=== PATIENT | female | born 1960 | race African-American/Black ===

== ENCOUNTER 2017-07-10 09:27 | Inpatient (IN) | payer MEDICARE, OTHER, MEDICAID ==
[2017-07-10 12:17] LABS: INR 0.94; PROTIME 12.7 Sec (11.9-14.9)
[2017-07-10 12:18] LABS: PARTIAL THROMBOPLASTIN TIME 26.9 Sec (25.0-35.0)
[2017-07-10 12:23] LABS: ALANINE AMINOTRANSFERASE 24 IU/L (13-69); ALBUMIN/GLOBULIN RATIO 1.08; ALKALINE PHOSPHATASE 177 IU/L (42-121); ANION GAP 15 (8-16); ASPARTATE AMINO TRANSFERASE 60 IU/L (15-46); BILIRUBIN,INDIRECT 0.1 mg/dl (0-1.1); BILIRUBIN,TOTAL 0.1 mg/dl (0.2-1.3); BLOOD UREA NITROGEN 10 mg/dl (7-20); CALCIUM 8.3 mg/dl (8.4-10.2); CARBON DIOXIDE 22 mmol/L (21-31); CHLORIDE 105 mmol/L (97-110); CREATININE 0.92 mg/dl (0.44-1.00); GLUCOSE 90 mg/dl (70-220); POTASSIUM 4.5 mmol/L (3.5-5.1); SODIUM 137 mmol/L (135-144); TOTAL PROTEIN 7.7 g/dl (6.1-8.1)
[2017-07-10] MEDS ORDERED: CLINDAMYCIN 900 MG/D5W (PMX) 50 ML IVPB (13:30)
[2017-07-10] MEDS ORDERED: morphine SULFATE/PF (10 MG/10 ML) INJ (14:07)
[2017-07-10] MEDS ORDERED: MIDAZOLAM 1 MG/ML 2 ML INJ (14:07)
[2017-07-10] MEDS: TRANEXAMIC ACID 1,000 MG in DEXTROSE 5% 100 ML IV ×2 (15:30→15:56)
[2017-07-10] MEDS: BACITRACIN 50000 UNITS INJ (15:33)
[2017-07-10] MEDS: HIP PAIN COCKTAIL VANCO INJ (15:36)
[2017-07-10] MEDS: VANCOMYCIN 1 GM INJ (15:36)
[2017-07-10] MEDS: POLYMYXIN B 500000 UNIT INJ (15:38)
[2017-07-10] MEDS ORDERED: METOCLOPRAMIDE 10 MG INJ (16:37)
[2017-07-10] MEDS ORDERED: ONDANSETRON 4 MG INJ (16:37)
[2017-07-10] MEDS ORDERED: PROPOFOL 20 ML (16:39)
[2017-07-10] MEDS ORDERED: NEOSTIGMINE 3 MG/3 ML SYRINGE (16:39)
[2017-07-10] MEDS ORDERED: GLYCOPYRROLATE 1 MG INJ (16:39)
[2017-07-10] MEDS ORDERED: LIDOCAINE 2% (SDV) 5 ML INJ (16:39)
[2017-07-10] MEDS ORDERED: ROCURONIUM 50 MG INJ (16:39)
[2017-07-10] MEDS ORDERED: CEFAZOLIN 1 GM INJ (16:44)
[2017-07-10] MEDS ORDERED: MEPERIDINE 25 MG INJ IV (17:00)
[2017-07-10] MEDS ORDERED: HYDROmorphONE (0.2 MG/ML) 10ML SYG IV ×2 (17:00)
[2017-07-10] MEDS ORDERED: NALOXONE (0.4 MG/ML) INJ IV (17:00)
[2017-07-10] MEDS ORDERED: DIPHENHYDRAMINE 50 MG INJ IM (17:00)
[2017-07-10] MEDS ORDERED: FENTAnyl 50 MCG/ML VIAL IV (17:00)
[2017-07-10] MEDS ORDERED: hydrALAzine 20 MG INJ IV (17:00)
[2017-07-10] MEDS ORDERED: DIPHENHYDRAMINE 50 MG INJ IV (17:00)
[2017-07-10] MEDS ORDERED: SENNA/DOCUSATE NA (8.6MG/50MG) TAB PO (17:00)
[2017-07-10] MEDS ORDERED: LABETALOL HCL 20MG INJ IV (17:00)
[2017-07-10] MEDS ORDERED: BISACODYL 10 MG SUPP PR (17:00)
[2017-07-10] MEDS ORDERED: NA PHOSPHATE/BIPHOS 133 ML ENEMA PR (17:00)
[2017-07-10] MEDS ORDERED: ONDANSETRON 4 MG INJ IV (17:00)
[2017-07-10] MEDS ORDERED: METOCLOPRAMIDE 10 MG INJ IV (17:00)
[2017-07-10] MEDS ORDERED: MAGNESIUM HYDROXIDE 30ML CUP PO (17:00)
[2017-07-10] MEDS ORDERED: NACL 0.9% 3 ML SYG IV (17:00)
[2017-07-10] MEDS: VANCOMYCIN 1 GM (PMX) 250 ML IVPB (18:34)
[2017-07-10] MEDS: ASPIRIN (EC) 325 MG TAB PO ×2 (18:36→21:00)
[2017-07-10] MEDS: DOCUSATE SODIUM 100 MG CAP PO (18:38)
[2017-07-10] MEDS: ONDANSETRON 4 MG INJ IV ×2 (18:40→22:14)
[2017-07-10] MEDS: oxyCODONE 5 MG TAB PO (20:30)
[2017-07-10] MEDS: AMITRIPTYLINE 50 MG TAB PO (21:00)
[2017-07-10] MEDS: DIAZEPAM 5 MG TAB PO (21:00)
[2017-07-10] MEDS: DULOXETINE 30 MG CAP DR PO (21:00)
[2017-07-10] MEDS: SOD CHLORIDE 0.9% 1,000 ML IV (22:14)
[2017-07-11] MEDS: oxyCODONE 5 MG TAB PO ×5 (04:01→20:42)
[2017-07-11] MEDS: SOD CHLORIDE 0.9% 1,000 ML IV ×2 (04:01→17:40)
[2017-07-11 05:27] LABS: ADD MAN DIFF? NO
[2017-07-11] MEDS: PANTOPRAZOLE (EC) 40 MG TAB PO (05:28)
[2017-07-11] MEDS: VANCOMYCIN 1 GM (PMX) 250 ML IVPB (05:28)
[2017-07-11] MEDS: ONDANSETRON 4 MG INJ IV ×2 (05:29→11:00)
[2017-07-11 05:36] LABS: BASOPHILS % 0.3 % (0.0-2.0); EOSINOPHILS # 0.2 10^3/ul (0.0-0.5); EOSINOPHILS % 2.1 % (0.0-7.0); HEMATOCRIT 31.4 % (37.0-47.0); HEMOGLOBIN 9.7 g/dl (12.0-16.0); LYMPHOCYTES # 1.4 10^3/ul (0.8-2.9); LYMPHOCYTES % 18.5 % (15.0-51.0); MEAN CORPUSCULAR HGB CONC 30.9 g/dl (32.0-37.0); MEAN CORPUSCULAR VOLUME 90.8 fl (82.0-101.0); MEAN PLATELET VOLUME 9.8 fl (7.4-10.4); MONOCYTE # 0.4 10^3/ul (0.3-0.9); MONOCYTES % 5.7 % (0.0-11.0); NEUTROPHIL # 5.7 10^3/ul (1.6-7.5); NEUTROPHILS % 73.1 % (39.0-77.0); PLATELET COUNT 191 10^3/UL (140-415); RED BLOOD COUNT 3.46 10^6/ul (4.20-5.40); RED CELL DISTRIBUTION WIDTH 13.5 % (11.5-14.5)
[2017-07-11 05:36] LABS: WHITE BLOOD COUNT 7.7 10^3/ul (4.8-10.8)
[2017-07-11 05:59] LABS: ANION GAP 13 (8-16); BLOOD UREA NITROGEN 8 mg/dl (7-20); CALCIUM 7.8 mg/dl (8.4-10.2); CARBON DIOXIDE 25 mmol/L (21-31); CHLORIDE 104 mmol/L (97-110); CREATININE 0.85 mg/dl (0.44-1.00); GLUCOSE 103 mg/dl (70-220); POTASSIUM 3.9 mmol/L (3.5-5.1); SODIUM 138 mmol/L (135-144)
[2017-07-11] MEDS: BETHANECHOL 25 MG TAB PO (06:08)
[2017-07-11] MEDS: DIAZEPAM 5 MG TAB PO ×2 (09:00→21:02)
[2017-07-11] MEDS ORDERED: NON-FORMULARY/PATIENT OWN MED (Linaclotide (Linzess) 145 MCG) PO (09:00)
[2017-07-11] MEDS: ASPIRIN (EC) 325 MG TAB PO ×2 (10:50→20:44)
[2017-07-11] MEDS: DULOXETINE 30 MG CAP DR PO ×2 (10:50→20:44)
[2017-07-11] MEDS: FERROUS FUMARATE (SR) TAB PO ×2 (10:50→20:44)
[2017-07-11] MEDS: ARIPIPRAZOLE 2 MG TAB PO (10:51)
[2017-07-11] MEDS: BUPROPION (XL) 150 MG TAB PO (10:51)
[2017-07-11] MEDS: CELECOXIB 200 MG CAP PO ×2 (10:51→20:44)
[2017-07-11] MEDS: DOCUSATE SODIUM 100 MG CAP PO ×2 (10:52→20:44)
[2017-07-11] MEDS: LINZESS IS NON FORMULARY...PLEASE CONSIDER AN ORDER TO USE PATIENT'S OWN MED XX ×2 (12:30→20:30)
[2017-07-11] MEDS: AMITRIPTYLINE 50 MG TAB PO (20:44)
[2017-07-11] MEDS: TIOTROPIUM 18 MCG CAPSULE INHA DEV INH (20:50)
[2017-07-12] MEDS: oxyCODONE 5 MG TAB PO ×6 (01:13→22:04)
[2017-07-12] MEDS: ZOLPIDEM 5 MG TAB PO (01:51)
[2017-07-12] MEDS: SOD CHLORIDE 0.9% 1,000 ML IV ×2 (03:02→18:40)
[2017-07-12] MEDS: LINZESS IS NON FORMULARY...PLEASE CONSIDER AN ORDER TO USE PATIENT'S OWN MED XX (03:02)
[2017-07-12] MEDS: PANTOPRAZOLE (EC) 40 MG TAB PO (05:38)
[2017-07-12 05:58] LABS: ADD MAN DIFF? NO
[2017-07-12 06:01] LABS: BASOPHILS % 0.2 % (0.0-2.0); EOSINOPHILS # 0.3 10^3/ul (0.0-0.5); EOSINOPHILS % 2.9 % (0.0-7.0); HEMATOCRIT 30.7 % (37.0-47.0); HEMOGLOBIN 9.8 g/dl (12.0-16.0); LYMPHOCYTES # 2.1 10^3/ul (0.8-2.9); LYMPHOCYTES % 18.8 % (15.0-51.0); MEAN CORPUSCULAR HEMOGLOBIN 28.7 pg (29.0-33.0); MEAN CORPUSCULAR HGB CONC 31.9 g/dl (32.0-37.0); MONOCYTE # 0.5 10^3/ul (0.3-0.9); NEUTROPHIL # 7.9 10^3/ul (1.6-7.5); NEUTROPHILS % 72.7 % (39.0-77.0); PLATELET COUNT 185 10^3/UL (140-415); RED BLOOD COUNT 3.41 10^6/ul (4.20-5.40); RED CELL DISTRIBUTION WIDTH 13.4 % (11.5-14.5)
[2017-07-12 06:01] LABS: WHITE BLOOD COUNT 10.9 10^3/ul (4.8-10.8)
[2017-07-12 06:31] LABS: ANION GAP 12 (8-16); BLOOD UREA NITROGEN 8 mg/dl (7-20); CALCIUM 8.3 mg/dl (8.4-10.2); CARBON DIOXIDE 27 mmol/L (21-31); CHLORIDE 104 mmol/L (97-110); GLUCOSE 94 mg/dl (70-220); POTASSIUM 3.6 mmol/L (3.5-5.1); SODIUM 139 mmol/L (135-144)
[2017-07-12] MEDS: CELECOXIB 200 MG CAP PO ×2 (08:47→20:55)
[2017-07-12] MEDS: DULOXETINE 30 MG CAP DR PO ×2 (08:47→20:55)
[2017-07-12] MEDS: DOCUSATE SODIUM 100 MG CAP PO ×2 (08:48→20:56)
[2017-07-12] MEDS: TIOTROPIUM 18 MCG CAPSULE INHA DEV INH (08:48)
[2017-07-12] MEDS: ARIPIPRAZOLE 2 MG TAB PO (08:48)
[2017-07-12] MEDS: BUPROPION (XL) 150 MG TAB PO (08:48)
[2017-07-12] MEDS: ASPIRIN (EC) 325 MG TAB PO ×2 (08:48→20:55)
[2017-07-12] MEDS: FERROUS FUMARATE (SR) TAB PO ×2 (08:48→20:56)
[2017-07-12] MEDS: DIAZEPAM 5 MG TAB PO ×2 (09:00→20:55)
[2017-07-12] MEDS: AMITRIPTYLINE 50 MG TAB PO (20:55)
[2017-07-13] MEDS: oxyCODONE 5 MG TAB PO ×4 (02:28→17:22)
[2017-07-13] MEDS: LINZESS IS NON FORMULARY...PLEASE CONSIDER AN ORDER TO USE PATIENT'S OWN MED XX ×5 (04:30→20:30)
[2017-07-13] MEDS: PANTOPRAZOLE (EC) 40 MG TAB PO (05:13)
[2017-07-13] MEDS: NALOXONE (0.4 MG/ML) INJ IV ×2 (07:56→20:24)
[2017-07-13] MEDS: SOD CHLORIDE 0.9% 1,000 ML IV ×2 (08:12→15:37)
[2017-07-13] MEDS: BUPROPION (XL) 150 MG TAB PO (10:43)
[2017-07-13] MEDS: ASPIRIN (EC) 325 MG TAB PO ×3 (10:43→21:00)
[2017-07-13] MEDS: FERROUS FUMARATE (SR) TAB PO ×3 (10:43→21:00)
[2017-07-13] MEDS: TIOTROPIUM 18 MCG CAPSULE INHA DEV INH (10:44)
[2017-07-13] MEDS: DULOXETINE 30 MG CAP DR PO ×2 (10:44→21:00)
[2017-07-13] MEDS: ARIPIPRAZOLE 2 MG TAB PO (10:45)
[2017-07-13] MEDS: DIAZEPAM 5 MG TAB PO ×2 (10:46→21:00)
[2017-07-13] MEDS: DOCUSATE SODIUM 100 MG CAP PO ×2 (10:46→20:07)
[2017-07-13] MEDS: CELECOXIB 200 MG CAP PO ×3 (10:47→21:00)
[2017-07-13 11:54] LABS: HEMATOCRIT 30.2 % (37.0-47.0); HEMOGLOBIN 9.7 g/dl (12.0-16.0); MEAN CORPUSCULAR HEMOGLOBIN 28.3 pg (29.0-33.0); MEAN CORPUSCULAR HGB CONC 32.1 g/dl (32.0-37.0); MEAN PLATELET VOLUME 10.1 fl (7.4-10.4); PLATELET COUNT 182 10^3/UL (140-415); RED BLOOD COUNT 3.43 10^6/ul (4.20-5.40); RED CELL DISTRIBUTION WIDTH 13.6 % (11.5-14.5)
[2017-07-13 11:54] LABS: WHITE BLOOD COUNT 10.4 10^3/ul (4.8-10.8)
[2017-07-13 12:00] LABS: ADD MAN DIFF? YES; POSITIVE DIFF @See below
[2017-07-13 12:14] LABS: ANION GAP 12 (8-16); BLOOD UREA NITROGEN 14 mg/dl (7-20); CALCIUM 8.2 mg/dl (8.4-10.2); CARBON DIOXIDE 25 mmol/L (21-31); CHLORIDE 102 mmol/L (97-110); CREATININE 0.96 mg/dl (0.44-1.00); GLUCOSE 109 mg/dl (70-220); POTASSIUM 3.8 mmol/L (3.5-5.1); SODIUM 135 mmol/L (135-144)
[2017-07-13 12:28] LABS: FREE T4 (FREE THYROXINE) 1.36 ng/dl (0.64-1.79)
[2017-07-13 12:44] LABS: THYROID STIMULATING HORMONE 0.782 MIU/L (0.465-4.680)
[2017-07-13 12:44] LABS: HEPATITIS B SURFACE ANTIGEN NEGATIVE (NEGATIVE)
[2017-07-13 12:45] LABS: BAND NEUTROPHILS #M 0.7 10^3/ul (0.0-0.6); BAND NEUTROPHILS % (M) 7 % (0-4); EOSINOPHILS % (M) 2 % (0-7); GIANT THROMBO% (M) 1 % (0-0); LYMPHOCYTES % (M) 10 % (15-51); MONOCYTE #M 0.1 10^3/ul (0.3-0.9); MONOCYTES % (M) 1 % (0-11); PLATELET ESTIMATE NORMAL; REACTIVE LYMPHOCYTES #M 0.2 10^3/ul (0.0-0.0); REACTIVE LYMPHOCYTES% (M) 2 % (0-0); SEG NEUT #M 8.2 10^3/ul (1.7-7.5); SEGMENTED NEUTROPHILS (M) % 78 % (39-77); SMUDGE%M 4 % (0-0)
[2017-07-13 13:08] LABS: HEPATITIS C VIRAL ANTIBODY REACTIVE (NEGATIVE)
[2017-07-13 13:17] LABS: IONIZED CALCIUM 1.2 mmol/L (1.1-1.4)
[2017-07-13 20:50] LABS: AADO2 Arterial 59.5 mmHg (7.0-24.0); Allen Test ACCEPTAB; Arterial Base Excess 0 mmol/L (-3.0-3); Arterial Blood Gas Oxygen Sat 96.2 mmHG (95.0-98.0); Arterial COHb 0.2 % (0.0-3.0); Arterial Fraction of Oxyhgb 95.7 % (93.0-99.0); Arterial HCO3 24.5 mmol/L (22.0-26.0); Arterial MetHb 0.3 % (0.0-1.5); Arterial Total Hemglobin 10.3 g/dl (12.0-18.0); Arterial pCO2 39.1 mmhg (35-45); MODE NASAL CANNULA; Site Right Radial
[2017-07-13] MEDS: AMITRIPTYLINE 50 MG TAB PO (21:00)
[2017-07-13] MEDS ORDERED: VITAMIN A & D 5 GM OINT PACKET TOP (22:11)
[2017-07-13] MEDS: KETOROLAC 30 MG INJ IV (23:28)
[2017-07-13] MEDS ORDERED: VANCOMYCIN IV PER PHARMACY XX (23:30)
[2017-07-13] MEDS ORDERED: PIPER-TAZO 3.375 GM IV (PMX) 100 ML IVPB (23:30)
[2017-07-14] MEDS ORDERED: oxyCODONE 5 MG TAB PO
[2017-07-14] MEDS: AZTREONAM 2 GM in DEXTROSE 5% 100 ML IVPB ×3 (00:49→17:11)
[2017-07-14] MEDS: VANCOMYCIN 1.5 GM in DEXTROSE 5% 500 ML IVPB (02:14)
[2017-07-14] MEDS: NALOXONE (0.4 MG/ML) INJ IV ×2 (03:08→08:25)
[2017-07-14] MEDS: LINZESS IS NON FORMULARY...PLEASE CONSIDER AN ORDER TO USE PATIENT'S OWN MED XX ×3 (04:30→19:37)
[2017-07-14 05:04] LABS: ADD MAN DIFF? NO
[2017-07-14 05:21] LABS: WHITE BLOOD COUNT 9.5 10^3/ul (4.8-10.8)
[2017-07-14 05:21] LABS: BASOPHILS % 0.2 % (0.0-2.0); EOSINOPHILS # 0.4 10^3/ul (0.0-0.5); EOSINOPHILS % 4.4 % (0.0-7.0); HEMATOCRIT 29.7 % (37.0-47.0); HEMOGLOBIN 9.2 g/dl (12.0-16.0); LYMPHOCYTES # 1.8 10^3/ul (0.8-2.9); LYMPHOCYTES % 19.3 % (15.0-51.0); MEAN CORPUSCULAR HEMOGLOBIN 27.9 pg (29.0-33.0); MEAN PLATELET VOLUME 9.8 fl (7.4-10.4); MONOCYTE # 0.4 10^3/ul (0.3-0.9); MONOCYTES % 4.6 % (0.0-11.0); NEUTROPHIL # 6.8 10^3/ul (1.6-7.5); NEUTROPHILS % 71.1 % (39.0-77.0); PLATELET COUNT 188 10^3/UL (140-415); RED CELL DISTRIBUTION WIDTH 13.5 % (11.5-14.5)
[2017-07-14] MEDS: PANTOPRAZOLE (EC) 40 MG TAB PO (05:56)
[2017-07-14 06:02] LABS: ANION GAP 11 (8-16); BLOOD UREA NITROGEN 10 mg/dl (7-20); CALCIUM 8.6 mg/dl (8.4-10.2); CARBON DIOXIDE 28 mmol/L (21-31); CHLORIDE 103 mmol/L (97-110); CREATININE 1.02 mg/dl (0.44-1.00); GLUCOSE 108 mg/dl (70-220); POTASSIUM 3.4 mmol/L (3.5-5.1); SODIUM 139 mmol/L (135-144)
[2017-07-14] MEDS: SOD CHLORIDE 0.9% 1,000 ML IV ×2 (08:10→20:23)
[2017-07-14] MEDS ORDERED: DIAZEPAM 2 MG TAB PO (09:00)
[2017-07-14] MEDS: TIOTROPIUM 18 MCG CAPSULE INHA DEV INH (09:20)
[2017-07-14] MEDS: ALPRAZOLAM 0.25 MG TAB PO ×2 (09:21→20:32)
[2017-07-14] MEDS: CELECOXIB 200 MG CAP PO ×2 (09:21→20:32)
[2017-07-14] MEDS: FERROUS FUMARATE (SR) TAB PO ×2 (09:21→20:32)
[2017-07-14] MEDS: DULOXETINE 30 MG CAP DR PO ×2 (09:21→20:32)
[2017-07-14] MEDS: ASPIRIN (EC) 325 MG TAB PO ×2 (09:21→20:32)
[2017-07-14] MEDS: ARIPIPRAZOLE 2 MG TAB PO (09:22)
[2017-07-14] MEDS: SALMETEROL/FLUTICASONE 250/50 INHA INH ×2 (10:33→20:32)
[2017-07-14] MEDS: oxyCODONE 5 MG TAB PO ×2 (11:22→22:43)
[2017-07-14] MEDS: VANCOMYCIN 1.25 GM in SOD CHLORIDE 0.45% 250 ML IVPB (13:12)
[2017-07-14] MEDS ORDERED: AZTREONAM 2 GM in DEXTROSE 5% 100 ML IVPB (14:00)
[2017-07-14] MEDS: NORTRIPTYLINE 25 MG CAP PO (20:43)
[2017-07-14] MEDS ORDERED: NITROGLYCERIN (SL) 0.4 MG TAB SL (21:30)
[2017-07-14 23:14] LABS: TROPONIN-I < 0.012 ng/ml (0.00-0.12)
[2017-07-15] MEDS: AZTREONAM 2 GM in DEXTROSE 5% 100 ML IVPB ×2 (00:31→08:35)
[2017-07-15] MEDS: VANCOMYCIN 1.25 GM in SOD CHLORIDE 0.45% 250 ML IVPB (01:42)
[2017-07-15] MEDS: LINZESS IS NON FORMULARY...PLEASE CONSIDER AN ORDER TO USE PATIENT'S OWN MED XX ×2 (04:30→12:30)
[2017-07-15] MEDS: PANTOPRAZOLE (EC) 40 MG TAB PO ×2 (05:36→06:00)
[2017-07-15] MEDS: ASPIRIN (EC) 325 MG TAB PO (08:36)
[2017-07-15] MEDS: TIOTROPIUM 18 MCG CAPSULE INHA DEV INH (08:36)
[2017-07-15] MEDS: CELECOXIB 200 MG CAP PO (08:36)
[2017-07-15] MEDS: ARIPIPRAZOLE 2 MG TAB PO (08:36)
[2017-07-15] MEDS: SALMETEROL/FLUTICASONE 250/50 INHA INH (08:36)
[2017-07-15] MEDS: FERROUS FUMARATE (SR) TAB PO (08:37)
[2017-07-15] MEDS: ALPRAZOLAM 0.25 MG TAB PO (08:37)
[2017-07-15] MEDS: DULOXETINE 30 MG CAP DR PO (08:37)
[2017-07-15] MEDS: oxyCODONE 5 MG TAB PO (08:38)
[2017-07-15] MEDS: SOD CHLORIDE 0.9% 1,000 ML IV (09:10)
[2017-07-15 12:16] LABS: ADD MAN DIFF? NO
[2017-07-15 12:18] LABS: BASOPHILS % 0.2 % (0.0-2.0); EOSINOPHILS # 0.4 10^3/ul (0.0-0.5); EOSINOPHILS % 5.2 % (0.0-7.0); HEMATOCRIT 29.1 % (37.0-47.0); HEMOGLOBIN 9.3 g/dl (12.0-16.0); LYMPHOCYTES # 1.9 10^3/ul (0.8-2.9); MEAN CORPUSCULAR HEMOGLOBIN 28.9 pg (29.0-33.0); MEAN CORPUSCULAR VOLUME 90.4 fl (82.0-101.0); MEAN PLATELET VOLUME 9.7 fl (7.4-10.4); MONOCYTE # 0.7 10^3/ul (0.3-0.9); MONOCYTES % 7.8 % (0.0-11.0); NEUTROPHIL # 5.3 10^3/ul (1.6-7.5); NEUTROPHILS % 63.3 % (39.0-77.0); PLATELET COUNT 235 10^3/UL (140-415); RED BLOOD COUNT 3.22 10^6/ul (4.20-5.40); RED CELL DISTRIBUTION WIDTH 13.5 % (11.5-14.5)
[2017-07-15 12:18] LABS: WHITE BLOOD COUNT 8.3 10^3/ul (4.8-10.8)
[2017-07-15 12:43] LABS: VANCOMYCIN,TROUGH 15.3 ug/ml (10.0-20.0)
[2017-07-15 12:50] LABS: TROPONIN-I < 0.012 ng/ml (0.00-0.12)
[2017-07-15 13:32] LABS: ANION GAP 14 (8-16); BLOOD UREA NITROGEN 7 mg/dl (7-20); CALCIUM 8.3 mg/dl (8.4-10.2); CARBON DIOXIDE 25 mmol/L (21-31); CHLORIDE 105 mmol/L (97-110); CREATININE 0.84 mg/dl (0.44-1.00); GLUCOSE 92 mg/dl (70-220); SODIUM 140 mmol/L (135-144)
== END 2017-07-15 15:15 | DRG 469 ==
LOC: REC 09:27 → MS1 19:30
PROC: 0SR904Z Replacement of Right Hip Joint with Ceramic on Polyethylene Synthetic Substitute, Open Approach (ICD-10-PCS; principal; 2017-07-10 14:07)
DX: M16.11 Unilateral primary osteoarthritis, right hip (principal); J95.89 Other postprocedural complications and disorders of respiratory system, not elsewhere classified; J18.9 Pneumonia, unspecified organism; E66.9 Obesity, unspecified; Z68.34 Body mass index [BMI] 34.0-34.9, adult; F33.42 Major depressive disorder, recurrent, in full remission; F41.9 Anxiety disorder, unspecified; K21.9 Gastro-esophageal reflux disease without esophagitis; J44.9 Chronic obstructive pulmonary disease, unspecified; K59.00 Constipation, unspecified; R41.0 Disorientation, unspecified; Y83.2 Surgical operation with anastomosis, bypass or graft as the cause of abnormal reaction of the patient, or of later complication, without mention of misadventure at the time of the procedure; Y92.89 Other specified places as the place of occurrence of the external cause; Z96.653 Presence of artificial knee joint, bilateral; Z87.820 Personal history of traumatic brain injury
CPT/HCPCS: 36600; 71045; 73500; 73530; 78582; 80048; 80053; 80202; 82330; 82803; 82962; 84439; 84443; 84484; 85025; 85610; 85730; 86803; 86850; 86900; 86901; 87040; 87086; 87340; 88304; 88311; 93005; 97003; 97110; 97116; 97163; 97167; 97530; 97535

== ENCOUNTER 2017-07-15 15:32 | Inpatient (IN) | payer MEDICARE, OTHER ==
[2017-07-15] MEDS ORDERED: AZTREONAM 2 GM in DEXTROSE 5% 100 ML IVPB (17:40)
[2017-07-15] MEDS ORDERED: BISACODYL 10 MG SUPP PR (17:40)
[2017-07-15] MEDS ORDERED: MAGNESIUM HYDROXIDE 30ML CUP PO (17:40)
[2017-07-15] MEDS ORDERED: NA PHOSPHATE/BIPHOS 133 ML ENEMA PR (17:40)
[2017-07-15] MEDS ORDERED: DIPHENHYDRAMINE 50 MG INJ IM (17:40)
[2017-07-15] MEDS ORDERED: VANCOMYCIN IV PER PHARMACY XX (17:40)
[2017-07-15] MEDS ORDERED: NITROGLYCERIN (SL) 0.4 MG TAB SL (17:40)
[2017-07-15] MEDS ORDERED: SENNA/DOCUSATE NA (8.6MG/50MG) TAB PO (17:40)
[2017-07-15] MEDS ORDERED: NALOXONE (0.4 MG/ML) INJ IV (17:40)
[2017-07-15] MEDS: VANCOMYCIN 1.25 GM in SOD CHLORIDE 0.45% 250 ML IVPB (19:30)
[2017-07-15] MEDS: CELECOXIB 200 MG CAP PO (20:35)
[2017-07-15] MEDS: ALPRAZOLAM 0.25 MG TAB PO (20:35)
[2017-07-15] MEDS: FERROUS FUMARATE (SR) TAB PO (20:35)
[2017-07-15] MEDS: SALMETEROL/FLUTICASONE 250/50 INHA INH (20:36)
[2017-07-15] MEDS: ASPIRIN (EC) 325 MG TAB PO (20:36)
[2017-07-15] MEDS: NORTRIPTYLINE 25 MG CAP PO (20:36)
[2017-07-15] MEDS: DULOXETINE 30 MG CAP DR PO (20:36)
[2017-07-15] MEDS: AZTREONAM 2 GM in DEXTROSE 5% 100 ML IVPB (23:39)
[2017-07-16] MEDS: oxyCODONE 5 MG TAB PO ×4 (01:42→19:25)
[2017-07-16] MEDS: PANTOPRAZOLE (EC) 40 MG TAB PO (05:56)
[2017-07-16 07:27] LABS: ADD MAN DIFF? NO
[2017-07-16 07:37] LABS: BASOPHILS % 0.5 % (0.0-2.0); EOSINOPHILS # 0.5 10^3/ul (0.0-0.5); EOSINOPHILS % 6.9 % (0.0-7.0); HEMATOCRIT 28.6 % (37.0-47.0); HEMOGLOBIN 9.1 g/dl (12.0-16.0); LYMPHOCYTES % 26.7 % (15.0-51.0); MEAN CORPUSCULAR HEMOGLOBIN 28.8 pg (29.0-33.0); MEAN CORPUSCULAR HGB CONC 31.8 g/dl (32.0-37.0); MEAN CORPUSCULAR VOLUME 90.5 fl (82.0-101.0); MEAN PLATELET VOLUME 9.6 fl (7.4-10.4); MONOCYTE # 0.5 10^3/ul (0.3-0.9); MONOCYTES % 6.9 % (0.0-11.0); NEUTROPHIL # 4.5 10^3/ul (1.6-7.5); NEUTROPHILS % 58.6 % (39.0-77.0); PLATELET COUNT 245 10^3/UL (140-415); RED BLOOD COUNT 3.16 10^6/ul (4.20-5.40); RED CELL DISTRIBUTION WIDTH 13.5 % (11.5-14.5)
[2017-07-16 07:37] LABS: WHITE BLOOD COUNT 7.7 10^3/ul (4.8-10.8)
[2017-07-16 07:58] LABS: ALANINE AMINOTRANSFERASE 21 IU/L (13-69); ALBUMIN 3.5 g/dl (3.3-4.9); ALKALINE PHOSPHATASE 151 IU/L (42-121); ANION GAP 12 (8-16); ASPARTATE AMINO TRANSFERASE 21 IU/L (15-46); BILIRUBIN,INDIRECT 0.1 mg/dl (0-1.1); BILIRUBIN,TOTAL 0.1 mg/dl (0.2-1.3); BLOOD UREA NITROGEN 8 mg/dl (7-20); CALCIUM 8.8 mg/dl (8.4-10.2); CARBON DIOXIDE 25 mmol/L (21-31); CHLORIDE 106 mmol/L (97-110); CREATININE 0.81 mg/dl (0.44-1.00); GLUCOSE 90 mg/dl (70-220); POTASSIUM 3.8 mmol/L (3.5-5.1); SODIUM 139 mmol/L (135-144)
[2017-07-16] MEDS: NON-FORMULARY/PATIENT OWN MED (Linaclotide (Linzess) 145 MCG) PO (09:00)
[2017-07-16] MEDS: LINZESS IS NON FORMULARY...PLEASE CONSIDER AN ORDER TO USE PATIENT'S OWN MED XX (09:40)
[2017-07-16] MEDS: SALMETEROL/FLUTICASONE 250/50 INHA INH ×2 (09:45→21:15)
[2017-07-16] MEDS: FERROUS FUMARATE (SR) TAB PO ×2 (09:46→21:13)
[2017-07-16] MEDS: TIOTROPIUM 18 MCG CAPSULE INHA DEV INH (09:46)
[2017-07-16] MEDS: ALPRAZOLAM 0.25 MG TAB PO ×2 (09:46→21:13)
[2017-07-16] MEDS: CELECOXIB 200 MG CAP PO ×2 (09:47→21:13)
[2017-07-16] MEDS: ARIPIPRAZOLE 2 MG TAB PO (09:47)
[2017-07-16] MEDS: DULOXETINE 30 MG CAP DR PO ×2 (09:47→21:13)
[2017-07-16] MEDS: ASPIRIN (EC) 325 MG TAB PO ×2 (09:48→21:13)
[2017-07-16] MEDS: AZTREONAM 2 GM in DEXTROSE 5% 100 ML IVPB ×2 (09:58→16:55)
[2017-07-16] MEDS: VANCOMYCIN 1.25 GM in SOD CHLORIDE 0.45% 250 ML IVPB (17:10)
[2017-07-16] MEDS: LIDOCAINE 5% PATCH TD (21:12)
[2017-07-16] MEDS: NORTRIPTYLINE 25 MG CAP PO (21:13)
[2017-07-17] MEDS: AZTREONAM 2 GM in DEXTROSE 5% 100 ML IVPB ×5 (00:34→23:42)
[2017-07-17] MEDS: PANTOPRAZOLE (EC) 40 MG TAB PO (05:53)
[2017-07-17] MEDS: VANCOMYCIN 1.25 GM in SOD CHLORIDE 0.45% 250 ML IVPB ×2 (06:05→17:52)
[2017-07-17] MEDS: ARIPIPRAZOLE 2 MG TAB PO (08:48)
[2017-07-17] MEDS: FERROUS FUMARATE (SR) TAB PO ×2 (08:48→20:51)
[2017-07-17] MEDS: DULOXETINE 30 MG CAP DR PO ×2 (08:48→20:51)
[2017-07-17] MEDS: CELECOXIB 200 MG CAP PO ×2 (08:49→20:51)
[2017-07-17] MEDS: oxyCODONE 5 MG TAB PO ×2 (08:49→16:47)
[2017-07-17] MEDS: SALMETEROL/FLUTICASONE 250/50 INHA INH ×2 (08:49→20:50)
[2017-07-17] MEDS: ALPRAZOLAM 0.25 MG TAB PO ×2 (08:49→20:51)
[2017-07-17] MEDS: ASPIRIN (EC) 325 MG TAB PO ×2 (08:49→20:51)
[2017-07-17] MEDS: LIDOCAINE 5% PATCH TD (08:51)
[2017-07-17] MEDS: TIOTROPIUM 18 MCG CAPSULE INHA DEV INH (08:55)
[2017-07-17] MEDS: NON-FORMULARY/PATIENT OWN MED (Linaclotide (Linzess) 145 MCG) PO (09:00)
[2017-07-17] MEDS: LINZESS IS NON FORMULARY...PLEASE CONSIDER AN ORDER TO USE PATIENT'S OWN MED XX ×2 (09:40→17:40)
[2017-07-17] MEDS: traMADol 50 MG TAB PO (13:31)
[2017-07-17] MEDS: NORTRIPTYLINE 25 MG CAP PO (20:51)
[2017-07-18] MEDS: LINZESS IS NON FORMULARY...PLEASE CONSIDER AN ORDER TO USE PATIENT'S OWN MED XX (01:40)
[2017-07-18] MEDS: VANCOMYCIN 1.25 GM in SOD CHLORIDE 0.45% 250 ML IVPB (05:30)
[2017-07-18] MEDS: PANTOPRAZOLE (EC) 40 MG TAB PO (05:33)
[2017-07-18] MEDS: traMADol 50 MG TAB PO ×3 (06:27→22:10)
[2017-07-18] MEDS: SALMETEROL/FLUTICASONE 250/50 INHA INH ×2 (08:34→21:48)
[2017-07-18] MEDS: TIOTROPIUM 18 MCG CAPSULE INHA DEV INH (08:35)
[2017-07-18] MEDS: LIDOCAINE 5% PATCH TD (08:35)
[2017-07-18] MEDS: DULOXETINE 30 MG CAP DR PO ×2 (08:36→20:41)
[2017-07-18] MEDS: ALPRAZOLAM 0.25 MG TAB PO ×2 (08:36→20:42)
[2017-07-18] MEDS: CELECOXIB 200 MG CAP PO ×2 (08:36→20:41)
[2017-07-18] MEDS: ASPIRIN (EC) 325 MG TAB PO ×2 (08:36→20:41)
[2017-07-18] MEDS: FERROUS FUMARATE (SR) TAB PO ×2 (08:36→20:41)
[2017-07-18] MEDS: ARIPIPRAZOLE 2 MG TAB PO (08:36)
[2017-07-18 09:26] LABS: BLOOD UREA NITROGEN 8 mg/dl (7-20)
[2017-07-18 09:26] LABS: CREATININE 0.87 mg/dl (0.44-1.00)
[2017-07-18] MEDS: oxyCODONE 5 MG TAB PO ×2 (09:49→19:00)
[2017-07-18] MEDS: AZTREONAM 2 GM in DEXTROSE 5% 100 ML IVPB ×2 (10:46→16:00)
[2017-07-18] MEDS: CLINDAMYCIN 600 MG/D5W (PMX) 50 ML IVPB ×2 (15:18→21:48)
[2017-07-18] MEDS: NORTRIPTYLINE 25 MG CAP PO (20:42)
[2017-07-19] MEDS: CLINDAMYCIN 600 MG/D5W (PMX) 50 ML IVPB ×3 (06:02→21:16)
[2017-07-19] MEDS: PANTOPRAZOLE (EC) 40 MG TAB PO (06:02)
[2017-07-19] MEDS: AZTREONAM 2 GM in DEXTROSE 5% 100 ML IVPB ×2 (08:00)
[2017-07-19] MEDS: oxyCODONE 5 MG TAB PO ×3 (08:11→19:44)
[2017-07-19] MEDS: FERROUS FUMARATE (SR) TAB PO ×2 (08:56→21:16)
[2017-07-19] MEDS: CELECOXIB 200 MG CAP PO ×2 (08:56→21:15)
[2017-07-19] MEDS: SALMETEROL/FLUTICASONE 250/50 INHA INH ×2 (08:56→21:15)
[2017-07-19] MEDS: LIDOCAINE 5% PATCH TD (08:56)
[2017-07-19] MEDS: ALPRAZOLAM 0.25 MG TAB PO ×2 (08:57→21:15)
[2017-07-19] MEDS: ASPIRIN (EC) 325 MG TAB PO ×2 (08:57→21:16)
[2017-07-19] MEDS: DULOXETINE 30 MG CAP DR PO ×2 (08:57→21:16)
[2017-07-19] MEDS: TIOTROPIUM 18 MCG CAPSULE INHA DEV INH (08:58)
[2017-07-19] MEDS: ARIPIPRAZOLE 2 MG TAB PO (09:02)
[2017-07-19] MEDS: AZTREONAM 2 GM in SOD CHLORIDE 0.9% 100 ML IVPB ×3 (09:06→16:40)
[2017-07-19] MEDS: NORTRIPTYLINE 25 MG CAP PO (21:15)
[2017-07-20] MEDS: AZTREONAM 2 GM in SOD CHLORIDE 0.9% 100 ML IVPB ×3 (01:29→17:20)
[2017-07-20] MEDS: PANTOPRAZOLE (EC) 40 MG TAB PO (05:06)
[2017-07-20] MEDS: traMADol 50 MG TAB PO ×2 (05:06→11:39)
[2017-07-20] MEDS: CLINDAMYCIN 600 MG/D5W (PMX) 50 ML IVPB ×3 (05:06→21:32)
[2017-07-20] MEDS: SALMETEROL/FLUTICASONE 250/50 INHA INH ×2 (08:45→20:30)
[2017-07-20] MEDS: ARIPIPRAZOLE 2 MG TAB PO (08:47)
[2017-07-20] MEDS: TIOTROPIUM 18 MCG CAPSULE INHA DEV INH (08:47)
[2017-07-20] MEDS: CELECOXIB 200 MG CAP PO ×2 (08:47→20:30)
[2017-07-20] MEDS: ALPRAZOLAM 0.25 MG TAB PO ×2 (08:48→20:31)
[2017-07-20] MEDS: ASPIRIN (EC) 325 MG TAB PO ×2 (08:48→20:31)
[2017-07-20] MEDS: FERROUS FUMARATE (SR) TAB PO ×2 (08:48→20:31)
[2017-07-20] MEDS: DULOXETINE 30 MG CAP DR PO ×2 (08:48→20:31)
[2017-07-20] MEDS: LIDOCAINE 5% PATCH TD (08:48)
[2017-07-20] MEDS: oxyCODONE 5 MG TAB PO ×3 (10:08→20:31)
[2017-07-20] MEDS ORDERED: METOCLOPRAMIDE 10 MG INJ IV (13:00)
[2017-07-20] MEDS: ONDANSETRON 4 MG INJ IV (13:25)
[2017-07-20] MEDS: NORTRIPTYLINE 25 MG CAP PO (20:31)
[2017-07-21] MEDS: oxyCODONE 5 MG TAB PO ×3 (04:50→15:26)
[2017-07-21] MEDS: CLINDAMYCIN 600 MG/D5W (PMX) 50 ML IVPB (05:54)
[2017-07-21] MEDS: PANTOPRAZOLE (EC) 40 MG TAB PO (05:54)
[2017-07-21] MEDS: traMADol 50 MG TAB PO ×3 (07:25→20:18)
[2017-07-21] MEDS: TIOTROPIUM 18 MCG CAPSULE INHA DEV INH (08:18)
[2017-07-21] MEDS: SALMETEROL/FLUTICASONE 250/50 INHA INH ×2 (08:18→20:19)
[2017-07-21] MEDS: ARIPIPRAZOLE 2 MG TAB PO (08:18)
[2017-07-21] MEDS: DULOXETINE 30 MG CAP DR PO ×2 (08:19→20:25)
[2017-07-21] MEDS: ALPRAZOLAM 0.25 MG TAB PO ×2 (08:19→20:21)
[2017-07-21] MEDS: FERROUS FUMARATE (SR) TAB PO ×2 (08:19→20:25)
[2017-07-21] MEDS: ASPIRIN (EC) 325 MG TAB PO ×2 (08:19→20:17)
[2017-07-21] MEDS: LIDOCAINE 5% PATCH TD (08:19)
[2017-07-21] MEDS: CELECOXIB 200 MG CAP PO ×2 (08:19→20:17)
[2017-07-21] MEDS: NORTRIPTYLINE 25 MG CAP PO (20:25)
[2017-07-22] MEDS: PANTOPRAZOLE (EC) 40 MG TAB PO (06:03)
[2017-07-22] MEDS: traMADol 50 MG TAB PO ×3 (06:03→21:27)
[2017-07-22 07:23] LABS: ANION GAP 12 (8-16); BLOOD UREA NITROGEN 11 mg/dl (7-20); CALCIUM 8.2 mg/dl (8.4-10.2); CARBON DIOXIDE 24 mmol/L (21-31); CHLORIDE 108 mmol/L (97-110); CREATININE 0.81 mg/dl (0.44-1.00); GLUCOSE 98 mg/dl (70-220); POTASSIUM 4.2 mmol/L (3.5-5.1); SODIUM 140 mmol/L (135-144)
[2017-07-22 07:39] LABS: ADD MAN DIFF? NO
[2017-07-22 07:41] LABS: BASOPHILS % 0.6 % (0.0-2.0); EOSINOPHILS # 0.7 10^3/ul (0.0-0.5); EOSINOPHILS % 10.6 % (0.0-7.0); HEMATOCRIT 30.9 % (37.0-47.0); HEMOGLOBIN 9.6 g/dl (12.0-16.0); LYMPHOCYTES % 28.5 % (15.0-51.0); MEAN CORPUSCULAR HEMOGLOBIN 28.4 pg (29.0-33.0); MEAN CORPUSCULAR HGB CONC 31.1 g/dl (32.0-37.0); MEAN CORPUSCULAR VOLUME 91.4 fl (82.0-101.0); MEAN PLATELET VOLUME 8.8 fl (7.4-10.4); MONOCYTE # 0.4 10^3/ul (0.3-0.9); NEUTROPHIL # 3.8 10^3/ul (1.6-7.5); NEUTROPHILS % 54.6 % (39.0-77.0); PLATELET COUNT 354 10^3/UL (140-415); RED BLOOD COUNT 3.38 10^6/ul (4.20-5.40); RED CELL DISTRIBUTION WIDTH 14.3 % (11.5-14.5)
[2017-07-22] MEDS: oxyCODONE 5 MG TAB PO ×2 (08:55→18:56)
[2017-07-22] MEDS: FERROUS FUMARATE (SR) TAB PO ×2 (08:56→21:28)
[2017-07-22] MEDS: ASPIRIN (EC) 325 MG TAB PO ×2 (08:56→21:26)
[2017-07-22] MEDS: ALPRAZOLAM 0.25 MG TAB PO ×2 (08:56→21:26)
[2017-07-22] MEDS: LIDOCAINE 5% PATCH TD (08:56)
[2017-07-22] MEDS: CELECOXIB 200 MG CAP PO ×2 (08:57→21:26)
[2017-07-22] MEDS: ARIPIPRAZOLE 2 MG TAB PO (08:58)
[2017-07-22] MEDS: DULOXETINE 30 MG CAP DR PO ×2 (08:58→21:28)
[2017-07-22] MEDS: TIOTROPIUM 18 MCG CAPSULE INHA DEV INH (08:59)
[2017-07-22] MEDS: SALMETEROL/FLUTICASONE 250/50 INHA INH ×2 (08:59→21:34)
[2017-07-22] MEDS: ZOLPIDEM 5 MG TAB PO (21:26)
[2017-07-22] MEDS: NORTRIPTYLINE 25 MG CAP PO (21:27)
[2017-07-23] MEDS: traMADol 50 MG TAB PO ×3 (03:27→21:09)
[2017-07-23] MEDS: PANTOPRAZOLE (EC) 40 MG TAB PO (05:51)
[2017-07-23] MEDS: oxyCODONE 5 MG TAB PO ×2 (05:58→17:17)
[2017-07-23] MEDS: FERROUS FUMARATE (SR) TAB PO ×2 (09:57→21:10)
[2017-07-23] MEDS: SALMETEROL/FLUTICASONE 250/50 INHA INH ×2 (09:57→21:10)
[2017-07-23] MEDS: TIOTROPIUM 18 MCG CAPSULE INHA DEV INH (09:57)
[2017-07-23] MEDS: ASPIRIN (EC) 325 MG TAB PO ×2 (09:57→21:09)
[2017-07-23] MEDS: ALPRAZOLAM 0.25 MG TAB PO ×2 (09:57→21:10)
[2017-07-23] MEDS: CELECOXIB 200 MG CAP PO ×2 (09:58→21:09)
[2017-07-23] MEDS: ARIPIPRAZOLE 2 MG TAB PO (09:58)
[2017-07-23] MEDS: LIDOCAINE 5% PATCH TD (09:58)
[2017-07-23] MEDS: DULOXETINE 30 MG CAP DR PO ×2 (09:59→21:09)
[2017-07-23] MEDS: NORTRIPTYLINE 25 MG CAP PO (21:10)
[2017-07-23] MEDS: ZOLPIDEM 5 MG TAB PO (21:10)
[2017-07-24] MEDS: PANTOPRAZOLE (EC) 40 MG TAB PO (06:09)
[2017-07-24] MEDS: oxyCODONE 5 MG TAB PO ×2 (06:22→12:05)
[2017-07-24] MEDS: FERROUS FUMARATE (SR) TAB PO (08:09)
[2017-07-24] MEDS: SALMETEROL/FLUTICASONE 250/50 INHA INH (08:09)
[2017-07-24] MEDS: TIOTROPIUM 18 MCG CAPSULE INHA DEV INH (08:09)
[2017-07-24] MEDS: LIDOCAINE 5% PATCH TD (08:09)
[2017-07-24] MEDS: ALPRAZOLAM 0.25 MG TAB PO (08:10)
[2017-07-24] MEDS: CELECOXIB 200 MG CAP PO (08:10)
[2017-07-24] MEDS: ASPIRIN (EC) 325 MG TAB PO (08:10)
[2017-07-24] MEDS: DULOXETINE 30 MG CAP DR PO (08:10)
[2017-07-24] MEDS: ARIPIPRAZOLE 2 MG TAB PO (08:10)
[2017-07-24] MEDS: traMADol 50 MG TAB PO (08:17)
== END 2017-07-24 12:30 | disposition home health service (06) | DRG 560 ==
LOC: VRC 15:32
PROC: F07Z5ZZ Bed Mobility Treatment (ICD-10-PCS; principal; 2017-07-15)
PROC: F08Z2ZZ Grooming/Personal Hygiene Treatment (ICD-10-PCS; 2017-07-15)
DX: Z47.1 Aftercare following joint replacement surgery (principal); F33.1 Major depressive disorder, recurrent, moderate; R45.851 Suicidal ideations; F06.8 Other specified mental disorders due to known physiological condition; J44.9 Chronic obstructive pulmonary disease, unspecified; G40.909 Epilepsy, unspecified, not intractable, without status epilepticus; Z96.641 Presence of right artificial hip joint; M19.90 Unspecified osteoarthritis, unspecified site; K59.00 Constipation, unspecified; K21.9 Gastro-esophageal reflux disease without esophagitis; F41.9 Anxiety disorder, unspecified; B19.20 Unspecified viral hepatitis C without hepatic coma; F17.200 Nicotine dependence, unspecified, uncomplicated; E66.9 Obesity, unspecified; Z68.34 Body mass index [BMI] 34.0-34.9, adult
CPT/HCPCS: 71045; 73130-LT; 80048; 80053; 82565; 84520; 85025; 97110; 97112; 97116; 97150; 97163; 97167; 97530; 97535

== ENCOUNTER → 2017-10-18 | Outpatient (CLI) | payer MEDICARE, OTHER | END | disposition home or self-care (01) | LOC: HKI 11:47 | DX: Z47.1 Aftercare following joint replacement surgery (principal); Z96.641 Presence of right artificial hip joint | CPT/HCPCS: 73502 ==